=== PATIENT | female | born 1940 | race Caucasian/White ===

== ENCOUNTER 2016-12-07 10:34 | Emergency (ER) | payer MEDICARE ==
[~2016-12-07 10:34] MED LIST: AMLODIPINE5 MG PO; B12100 MC1 PO; CHEWABLE ASPIRI81 MG PO; EXFORGE 10 MG-11 TAB PO; HYDROCODONE BIT1 T11 PO; LISINOPRIL10 MG PO; NEURONTIN300 MG PO
[2016-12-07] MEDS ORDERED: LOSARTAN POTASS25 M1 PO (10:48)
[2016-12-07 11:41] VITALS: BP 161/81
[2016-12-07 11:48] LABS: INTERNATIONAL NORM RATIO 1.1 (2.0-3.5); PROTHROMBIN TIME 12.2 SECONDS (9.0-12.4)
== END 2016-12-07 12:24 | disposition home or self-care (01) ==
LOC: ED 10:34
PROVIDERS: Emergency Medicine
DX: I10 Essential (primary) hypertension (principal); Z79.899 Other long term (current) drug therapy

== ENCOUNTER → 2017-03-27 | Outpatient (CLI) | payer MEDICARE ==
[~2017-03-27] MED LIST changes: +LOSARTAN POTASS25 M1 PO
== END ==
LOC: RAD 13:00
DX: M81.0 Age-related osteoporosis without current pathological fracture (principal)

== ENCOUNTER → 2017-06-12 | Outpatient (CLI) | payer MEDICARE | END | disposition home or self-care (01) | LOC: US 09:26 | DX: I73.9 Peripheral vascular disease, unspecified (principal); I10 Essential (primary) hypertension ==

== ENCOUNTER → 2017-09-11 | Outpatient (CLI) | payer MEDICARE | END | disposition home or self-care (01) | LOC: ORTHO 02:24 | DX: M25.562 Pain in left knee (principal); M17.12 Unilateral primary osteoarthritis, left knee ==

== ENCOUNTER → 2017-10-23 | Outpatient (CLI) | payer MEDICARE | END | disposition home or self-care (01) | LOC: ORTHO 03:50 | DX: M17.11 Unilateral primary osteoarthritis, right knee (principal) ==

== ENCOUNTER 2017-12-24 23:44 | Emergency (ER) | payer MEDICARE ==
[~2017-12-24] VITALS: Ht 157.4 cm; Wt 68.5 kg
[2017-12-24 23:51] VITALS: BP 182/96
[2017-12-25] MEDS ORDERED: KENALOG 0.1%80 GM T ×2 (00:21→00:36)
[2017-12-25] MEDS ORDERED: ATARAX,VISTARIL50 MG PO ×2 (00:21→00:36)
== END 2017-12-25 00:44 | disposition home or self-care (01) ==
LOC: ED 23:44
DX: L30.9 Dermatitis, unspecified (principal); I10 Essential (primary) hypertension; Z79.899 Other long term (current) drug therapy; Z88.0 Allergy status to penicillin; Z79.82 Long term (current) use of aspirin

== ENCOUNTER 2018-02-24 09:35 | Inpatient (IN) | payer MEDICARE ==
[~2018-02-24] VITALS: Ht 160 cm; Wt 73.1 kg
--- NOTE | ~2018-02-24 | CON ---
[place], [place] REPORT OF CONSULTATION NAME: [facility]LIN [facility] [id number] UNIT #: [id number] ROOM: 502 DOCTOR: TERESA BUNN MD BIRTHDATE: [birth year] DOS: 02/24/2018 REASON FOR CONSULTATION: Chest pain. HISTORY OF PRESENT ILLNESS: The patient is a 77-year-old woman, who I follow in our [facility] Cardiology office for paroxysmal atrial fibrillation. She states that she was previously followed by Dr. Garcia at the [facility]. She did have an episode of chest pain several years ago. Dr. Garcia did a catheterization, which reportedly showed mild disease and she has been managed medically since then. She developed atrial fibrillation around 2013 and has had several episodes that she can recall since then. She is on metoprolol and amlodipine for heart rate and blood pressure control and is on warfarin for stroke prophylaxis. She was in her normal state of health until this morning when she awakened and felt an aching sensation in her left shoulder. She had not previously injured it and she was able to move the shoulder without difficulty. Subsequently, the pains radiated into the center of her chest and she felt a knot in her chest. This made her uncomfortable and slightly breathless. She did have mild indigestion. During this episode, she also had some fluttering in her chest and had the feeling that she had to go to the bathroom to pass her urine. She became concerned and at the advice of a friend did come to the Emergency Room. I was called and I agreed that she should be observed overnight for a stress test in the morning. The patient states that her chest discomfort has subsequently resolved spontaneously and she no longer has any pain in her shoulder or chest. She does note that she ate [place]ic food last night that did not agree with her, but she was able to sleep through the night without any further discomfort and her pains did not start until this morning. PAST MEDICAL HISTORY: Includes: 1. Cardiac catheterization by Dr. Garcia at the [facility] in [place] several years ago reportedly showed minor coronary artery disease that has been treated medically. Those records are not currently available to me. 2. Essential hypertension. 3. Atrial fibrillation documented around 2013. 4. No previous history of diabetes, heart attack, or stroke. 5. History of peripheral neuropathy with Charcot joint in her right foot. 6. 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 7. Hospitalization 02/24/2018 for chest discomfort. Thus far, myocardial infarction has been ruled out. MEDICATIONS: Prior to admission, warfarin 6 mg for 3 days and then 7 mg on the fourth day, amlodipine 5 mg daily, ascorbic acid 500 mg daily, FiberCon 3 tablets daily, cholecalciferol 2000 units every other day, gabapentin 300 mg daily, magnesium oxide 400 mg every other day, metoprolol succinate 25 mg daily, multivitamin with folic acid once daily, Ambien 5 mg at bedtime p.r.n. insomnia. ALLERGIES: The patient lists ALLERGIES TO PENICILLINS. [place], [place] REPORT OF CONSULTATION NAME: BARRY TOMLIN UNIT #: [id number] ROOM: [facility] DOCTOR: TERESA BUNN MD BIRTHDATE: [birth year] FAMILY HISTORY: Negative for early coronary artery disease. REVIEW OF SYSTEMS: The patient denies diplopia or loss of vision. She denies focal weakness, lightheadedness, or syncope. She denies fevers, chills, sweats, or recent weight change. She denies orthopnea or PND. She denies cough, hemoptysis, or hematemesis. She denies nausea or vomiting. She denies any change in bowel or bladder habits and denies blood in her stools or urine. She denies any peripheral edema. Denies any skin rashes. She does have pains in her back with spinal stenosis, knees with osteoarthritis and feet with right ankle Charcot joint. The remainder of the review of systems is negative except as noted above. SOCIAL HISTORY: The patient does not smoke. She did in the distant past, but quit over 20 years ago. She did not consume significant amounts of alcohol. PHYSICAL EXAMINATION: GENERAL: The patient is a well-nourished white female, who looks younger than her stated age. She is awake, alert, and oriented. VITAL SIGNS: Pulse is 68 and regular, blood pressure is 154/76. She is afebrile. She weighs 73.1 kg and has a body mass index 28.6. HEENT: Normocephalic and atraumatic. Extraocular muscles are intact. Sclerae are clear. Pupils equal, round, and react to light. The oral mucosa is moist. Tongue is midline. NECK: Supple. She has no jugular distention. Carotids are full and I heard no bruits. She had no neck or supraclavicular masses and no thyromegaly. LUNGS: Respirations are unlabored. Her chest is clear to auscultation and percussion. She has no presacral edema or chest wall tenderness. HEART: Has a regular rhythm. She has a fourth heart sound, but no third heart sound or murmur. The PMI is not displaced. She has no precordial heave, lift, or thrill. ABDOMEN: Soft and normally active without masses, organomegaly, or bruits. EXTREMITIES: Showed no edema. She does have swelling in her knees and her right ankle. Pedal pulses are diminished in her feet bilaterally. LABORATORY DATA: I reviewed her electrocardiogram. She is currently in sinus rhythm and does have mild nonspecific ST changes, but no acute EKG changes are seen. Hemoglobin is 13.4, hematocrit 41.3. There are 4900 white cells and 189,000 platelets. INR is therapeutic at 2.4. Sodium is 144, potassium 3.7, chloride 109, CO2 of 30, BUN 11, creatinine 0.58. Serial troponins have been negative. IMPRESSION: 1. Atypical chest pain, which has subsequently resolved. The patient shows no signs of an acute myocardial infarction. 2. History of catheterization in the distant past. It showed minor coronary artery disease managed medically. 3. Paroxysmal atrial fibrillation. The patient is currently in sinus rhythm. 4. Essential hypertension. 5. History of degenerative joint disease and peripheral neuropathy with a right ankle Charcot joint despite the fact that she does not have diabetes. [place], [place] REPORT OF CONSULTATION NAME: BARRY TOMLIN UNIT #: [id number] ROOM: 502 DOCTOR: TERESA BUNN MD BIRTHDATE: [birth year] PLAN: The patient has ruled out for myocardial infarction. It is not clear at this time if this represents indigestion or angina. We will evaluate her further with a pharmacologic myocardial perfusion stress test. Further recommendations will depend upon the results of the stress test. In the interim, she will continue her current medications. I thank Dr. Browne for asking our advice regarding the management of this patient. TERESA BUNN MD CM:CONSTR:REPORT OF CONSULTATION 1927 02/25/18 0710 interface
--- NOTE | ~2018-02-24 | WRIGHTHP ---
[place], [place] PATIENT HISTORY AND PHYSICAL EXAM [id number] UNIT #: [id number] ROOM: 502 DOCTOR: HEIDY QUINTANA MD BIRTHDATE: [birth year] DOS: HISTORY OF PRESENT ILLNESS: This patient is 77 years old. The patient states that she was feeling good. She did not have any complaints when she woke up. She was on her way to work and noticed that she was having some retrosternal chest pain and radiation to the left arm, so she decided to come into the Emergency Room. She denies having any pain after she got admitted. She denies having any nausea, any emesis, any palpitations or shortness of breath. PAST MEDICAL HISTORY: Significant for: 1. History of chest pain with hospitalization in 2013. 2. Benign hypertension. 3. Also significant for chronic atrial fibrillation. MEDICATIONS: That she is taking are vitamin C, amlodipine 5, vitamin D, gabapentin 300, metoprolol 25, warfarin 6 mg 3 days and 7 mg 1 day and zolpidem 5 at bedtime. SOCIAL HISTORY: The patient is a nonsmoker and does not use any alcohol. She lives at home. PHYSICAL EXAMINATION: GENERAL: The patient is awake, alert and oriented. VITAL SIGNS: Graphic trend shows a blood pressure of 110/59, pulse of 48, respirations 20 and temperature 97.5. RESPIRATORY: Lungs are clear. CARDIOVASCULAR: Heart is regular. GASTROINTESTINAL: Abdomen is obese and soft. EXTREMITIES: Without any edema. LABORATORY EVALUATION: Protime is therapeutic at 2.4, white blood cell count is 4.9 and hemoglobin and hematocrit were normal. Comprehensive is within normal limits. ASSESSMENT AND PLAN: 1. This is a patient, who presents with precordial chest pain, ruled out for myocardial infarction with 3 sets of troponins. Echocardiogram is pending. Dr. Nash was consulted, and the patient will undergo stress test today. She can be discharged to home once the stress test is done and is negative. 2. Chronic atrial fibrillation with long-term use of anticoagulants and therapeutic protime. 3. Benign hypertension, controlled. [place], [place] PATIENT HISTORY AND PHYSICAL EXAM [facility]: [facility] [id number] UNIT #: [id number] ROOM: 502 DOCTOR: HEIDY QUINTANA MDTE: [birth year] HEIDY QUINTANA MD CM:HISPHYS:PATIENT HISTORY AND PHYSICAL EXAMINATION [id number] HEIDY QUINTANA MD 02/25/18 0807 interface
--- NOTE | ~2018-02-24 | PR ---
[place], [place] PROGRESS NOTE NAME: BARRY TOMLIN UNIT #: [id number] ROOM: 502 DOCTOR: TERESA BUNN MD BIRTHDATE: [birth year] DOS: 02/25/2018 CARDIOLOGY PROGRESS NOTE SUBJECTIVE: The patient was seen at her bedside today 02/25/2018 for followup of her paroxysmal atrial fibrillation and atherosclerotic heart disease. She has a history of a catheterization in the distant past which showed mild disease, which has been managed medically. She does have paroxysmal atrial fibrillation, which is occasionally symptomatic, but not life limiting. She presented to the hospital yesterday after experiencing an hour or two of left shoulder discomfort and a knot sensation in her left anterior chest, which subsequently resolved spontaneously. She has had no acute EKG changes or elevation in cardiac troponin. Overnight, she has done well. OBJECTIVE: VITAL SIGNS: Pulse is 60 and regular, blood pressure is 127/72. She is afebrile. NECK: Supple. She has no jugular distention. Carotids are full. She has no bruits. She has no neck or supraclavicular masses. LUNGS: Respirations are unlabored. Her chest is clear. HEART: Has a regular rhythm with an S4 gallop. ABDOMEN: Soft and normally active. EXTREMITIES: Showed no edema. IMPRESSION: 1. Atypical chest pain, resolving spontaneously. The patient shows no signs of an acute myocardial infarction; however, this may represent unstable angina. 2. History of catheterization in the distant past, reportedly showing minor coronary artery disease, managed medically. 3. Paroxysmal atrial fibrillation. The patient currently is in sinus rhythm. 4. Essential hypertension. 5. History of degenerative joint disease and peripheral neuropathy with right ankle Charcot joint despite the fact that she does not have diabetes. PLAN: We will proceed with a pharmacologic stress test today to determine whether she has significant coronary ischemia as a cause for her symptoms. Further recommendations will depend upon the results of the stress test. I thank Dr. Browne for asking our advice regarding the patient's care. [place], [place] PROGRESS NOTE NAME: BARRY TOMLIN UNIT #: [id number] ROOM: 502 DOCTOR: TERESA BUNN MD BIRTHDATE: [birth year] TERESA BUNN MD CM:PNNERI 0 22 TERESA BUNN MD 02/25/182120 interface
[~2018-02-24 09:35] MED LIST changes: +ATARAX,VISTARIL50 MG PO; +KENALOG 0.1%80 GM T
[2018-02-24 09:40] VITALS: BP 175/88
[2018-02-24] MEDS ORDERED: WARFARIN2 MG PO (09:49)
[2018-02-24] MEDS ORDERED: METOPROLOL SUCC25 M2 PO (09:50)
[2018-02-24] MEDS ORDERED: AMLODIPINE BESYL5 MG PO (09:50)
[2018-02-24] MEDS ORDERED: VITAMIN C60 MG PO (09:51)
[2018-02-24] MEDS ORDERED: MULTI FOR HER1 EAC2 PO (09:51)
[2018-02-24] MEDS ORDERED: VITAMIN D400 UNIT/1 PO (09:52)
[2018-02-24 10:05] LABS: BASO % 0.8 % (0.0-1.0); EOS # 0.1 10*3/uL (0.0-0.4); EOS % 1.4 % (1.0-4.0); HEMATOCRIT 41.3 % (37.0-47.0); HEMOGLOBIN 13.4 g/dl (12.0-16.0); LYMPH # 1.4 10*3/uL (1.3-4.4); LYMPH % 29.3 % (27.0-41.0); MEAN CELL VOLUME 90.2 fl (81.0-99.0); MEAN CORPUSCULAR HGB 29.3 pg (27.0-31.0); MEAN CORPUSCULAR HGB CONC 32.4 g/dl (33.0-37.0); MEAN PLATELET VOLUME 9.1 fl (9.6-12.3); MONO # 0.5 10*3/uL (0.1-1.0); MONO % 9.8 % (3.0-9.0); NEUT # 2.9 10*3/uL (2.3-7.9); NEUT % 58.5 % (47.0-73.0); PLATELET COUNT AUTOMATED 189 10*3/uL (130-400); RED BLOOD COUNT 4.58 10*6/uL (4.10-5.10); RED CELL DISTRI WIDTH 13.2 % (0-14.5); WHITE BLOOD COUNT 4.9 10*3/uL (4.8-10.8)
[2018-02-24 10:13] LABS: ACT PARTIAL THROMBO TIME 35.7 SECONDS (20.8-31.5); INTERNATIONAL NORM RATIO 2.4 (2.0-3.5)
[2018-02-24 10:21] LABS: ALBUMIN 3.5 gm/dl (3.1-4.5); ALKALINE PHOSPHATASE 68 U/L (45-117); BUN 11 mg/dl (7-24); CHLORIDE 109 mmol/L (98-107); CREATININE 0.58 mg/dL (0.55-1.02); POTASSIUM 3.7 mmol/L (3.5-5.1); SGOT/AST 16 IU/L (3-35); SGPT/ALT 29 U/L (12-78); SODIUM 144 mmol/L (136-145); TOTAL PROTEIN 6.7 gm/dL (6.4-8.2)
[2018-02-24 10:22] LABS: TROPONIN I < 0.015 ng/ml (<0.045)
[2018-02-24 10:58] VITALS: BP 163/75
[2018-02-24 11:02] LABS: BILIRUBIN NEGATIVE (NEGATIVE); BLOOD NEGATIVE (NEGATIVE); CLARITY CLEAR (CLEAR); COLOR YELLOW (YELLOW); GLUCOSE NEGATIVE (NEGATIVE); KETONE NEGATIVE (NEGATIVE); LEUKO ESTERASE NEGATIVE (NEGATIVE); NITRITE NEGATIVE (NEGATIVE); PH 6.5 (5.0-9.0); UROBILINOGEN 0.2 E.U./dl (0.2-1.0)
[2018-02-24 11:09] LABS: WBC 0-2 wbc/hpf (0-5); YEAST TRACE
[2018-02-24 12:08] VITALS: BP 170/88
[2018-02-24] MEDS ORDERED: AMBIEN5 MG PO (13:11)
[2018-02-24] MEDS ORDERED: MAGNESIUM400 M1 PO (13:12)
[2018-02-24] MEDS ORDERED: FIBERCON625 MG PO (13:12)
[2018-02-24 16:00] VITALS: BP 154/76
[2018-02-24 20:00] VITALS: BP 141/88
[2018-02-25] VITALS: BP 110/59
[2018-02-25 06:51] LABS: CHOLESTEROL 206 mg/dL (<200); HDL CHOLESTEROL 67 mg/dl (40-60); LDL CHOLESTEROL 124 mg/dL (9-159); TRIGLYCERIDES 74 mg/dl (<150); VLDL CHOLESTEROL 15 mg/dL (6-40)
[2018-02-25 08:00] VITALS: BP 127/72
[2018-02-25 12:00] VITALS: BP 126/67
== END 2018-02-25 14:40 | disposition home or self-care (01) | DRG 303 ==
LOC: ED 09:35 → 5E 10:55 → EDHOLD 10:55 → 5E 11:22
PROVIDERS: Internal Medicine; Nurse Practitioner Family
PROC: 4A02XM4 Measurement of Cardiac Total Activity, External Approach (ICD-10-PCS; principal; 2018-02-25)
PROC: 3E073KZ Introduction of Other Diagnostic Substance into Coronary Artery, Percutaneous Approach (ICD-10-PCS; principal; 2018-02-25)
DX: I25.110 Atherosclerotic heart disease of native coronary artery with unstable angina pectoris (principal); A52.16 Charcot's arthropathy (tabetic); I48.0 Paroxysmal atrial fibrillation; G62.9 Polyneuropathy, unspecified; I48.2 Chronic atrial fibrillation; I10 Essential (primary) hypertension; M17.0 Bilateral primary osteoarthritis of knee; Z79.82 Long term (current) use of aspirin; Z79.01 Long term (current) use of anticoagulants; Z88.0 Allergy status to penicillin; Z82.49 Family history of ischemic heart disease and other diseases of the circulatory system; Z79.899 Other long term (current) drug therapy

== ENCOUNTER 2018-05-11 04:38 | Emergency (ER) | payer MEDICARE ==
[~2018-05-11] VITALS: Ht 160 cm; Wt 69.4 kg
[~2018-05-11 04:38] MED LIST changes: +AMBIEN5 MG PO; +AMLODIPINE BESYL5 MG PO; +FIBERCON625 MG PO; +MAGNESIUM400 M1 PO; +METOPROLOL SUCC25 M2 PO; +MULTI FOR HER1 EAC2 PO; +VITAMIN C60 MG PO; +VITAMIN D400 UNIT/1 PO; +WARFARIN2 MG PO
[2018-05-11 04:39] VITALS: BP 155/89
[2018-08-01] MEDS ORDERED: ZOFRAN ODT4 MG SL ×2 (00:30→00:38)
== END 2018-05-11 06:12 | disposition home or self-care (01) ==
LOC: ED 04:38
DX: R07.81 Pleurodynia (principal); R06.00 Dyspnea, unspecified; I10 Essential (primary) hypertension; Z88.0 Allergy status to penicillin; Z88.8 Allergy status to other drugs, medicaments and biological substances; Z79.01 Long term (current) use of anticoagulants; Z79.899 Other long term (current) drug therapy

== ENCOUNTER → 2018-05-18 | Outpatient (CLI) | payer MEDICARE ==
[~2018-05-18] MED LIST changes: +ZOFRAN ODT4 MG SL
== END | disposition home or self-care (01) ==
LOC: CT 12:53
DX: I70.0 Atherosclerosis of aorta (principal); I25.10 Atherosclerotic heart disease of native coronary artery without angina pectoris; M79.621 Pain in right upper arm

== ENCOUNTER → 2018-06-30 | Outpatient (CLI) | payer MEDICARE ==
[2018-06-30 13:47] LABS: BASO # 0.1 10*3/uL (0.0-0.1); BASO % 0.9 % (0.0-1.0); EOS # 0.1 10*3/uL (0.0-0.4); EOS % 2.1 % (1.0-4.0); HEMATOCRIT 42.2 % (37.0-47.0); HEMOGLOBIN 13.8 g/dl (12.0-16.0); LYMPH # 2.2 10*3/uL (1.3-4.4); LYMPH % 39.7 % (27.0-41.0); MEAN CELL VOLUME 90.9 fl (81.0-99.0); MEAN CORPUSCULAR HGB 29.7 pg (27.0-31.0); MEAN CORPUSCULAR HGB CONC 32.7 g/dl (33.0-37.0); MEAN PLATELET VOLUME 9.1 fl (9.6-12.3); MONO # 0.6 10*3/uL (0.1-1.0); MONO % 10.1 % (3.0-9.0); NEUT # 2.6 10*3/uL (2.3-7.9); NEUT % 46.8 % (47.0-73.0); PLATELET COUNT AUTOMATED 194 10*3/uL (130-400); RED BLOOD COUNT 4.64 10*6/uL (4.10-5.10); RED CELL DISTRI WIDTH 13.8 % (0-14.5); WHITE BLOOD COUNT 5.6 10*3/uL (4.8-10.8)
== END | disposition home or self-care (01) ==
LOC: LAB 13:20
PROVIDERS: Orthopaedic Surgery
DX: M25.461 Effusion, right knee (principal)

== ENCOUNTER → 2018-07-28 | Outpatient (CLI) | payer MEDICARE | END | disposition home or self-care (01) | LOC: US 11:40 | DX: M71.22 Synovial cyst of popliteal space [Baker], left knee (principal); M79.81 Nontraumatic hematoma of soft tissue ==

== ENCOUNTER → 2018-08-06 | Outpatient (CLI) | payer MEDICARE | END | disposition home or self-care (01) | LOC: MRI 13:35 | DX: S06.5X0A Traumatic subdural hemorrhage without loss of consciousness, initial encounter (principal); X58.XXXA Exposure to other specified factors, initial encounter; Y93.89 Activity, other specified; Y92.89 Other specified places as the place of occurrence of the external cause; Y99.8 Other external cause status ==

== ENCOUNTER 2018-08-11 07:46 | Emergency (ER) | payer MEDICARE ==
[~2018-08-11] VITALS: Ht 160 cm; Wt 68.5 kg
[2018-08-11 07:47] VITALS: BP 141/92
[2018-08-11 09:31] LABS: BASO % 0.6 % (0.0-1.0); EOS # 0.1 10*3/uL (0.0-0.4); HEMATOCRIT 38.7 % (37.0-47.0); HEMOGLOBIN 12.5 g/dl (12.0-16.0); LYMPH # 1.3 10*3/uL (1.3-4.4); LYMPH % 27.7 % (27.0-41.0); MEAN CELL VOLUME 91.5 fl (81.0-99.0); MEAN CORPUSCULAR HGB 29.6 pg (27.0-31.0); MEAN CORPUSCULAR HGB CONC 32.3 g/dl (33.0-37.0); MEAN PLATELET VOLUME 8.5 fl (9.6-12.3); MONO # 0.5 10*3/uL (0.1-1.0); MONO % 10.6 % (3.0-9.0); NEUT # 2.9 10*3/uL (2.3-7.9); NEUT % 59.7 % (47.0-73.0); PLATELET COUNT AUTOMATED 228 10*3/uL (130-400); RED BLOOD COUNT 4.23 10*6/uL (4.10-5.10); RED CELL DISTRI WIDTH 13.7 % (0-14.5); WHITE BLOOD COUNT 4.8 10*3/uL (4.8-10.8)
[2018-08-11 09:39] LABS: ACT PARTIAL THROMBO TIME 25.5 SECONDS (20.8-31.5)
[2018-08-11 09:49] LABS: ALBUMIN 3.4 gm/dl (3.1-4.5); ALKALINE PHOSPHATASE 90 U/L (45-117); BUN 12 mg/dl (7-24); CHLORIDE 105 mmol/L (98-107); CREATININE 0.49 mg/dL (0.55-1.02); POTASSIUM 4.3 mmol/L (3.5-5.1); SGOT/AST 23 IU/L (3-35); SGPT/ALT 32 U/L (12-78); SODIUM 138 mmol/L (136-145); TOTAL PROTEIN 7.1 gm/dL (6.4-8.2)
[2018-08-11 10:19] LABS: BILIRUBIN NEGATIVE (NEGATIVE); BLOOD NEGATIVE (NEGATIVE); CLARITY SL CLOUDY (CLEAR); COLOR YELLOW (YELLOW); GLUCOSE NEGATIVE (NEGATIVE); KETONE NEGATIVE (NEGATIVE); LEUKO ESTERASE NEGATIVE (NEGATIVE); NITRITE NEGATIVE (NEGATIVE); PH 6.5 (5.0-9.0); SPECIFIC GRAVITY <= 1.005 (1.005-1.030); UROBILINOGEN 0.2 E.U./dl (0.2-1.0)
[2018-08-11 10:28] LABS: RBC 0-2 rbc/hpf (0-2)
[2018-08-11 10:29] LABS: BACTERIA TRACE
== END 2018-08-11 12:22 | disposition home or self-care (01) ==
LOC: ED 07:46
PROVIDERS: Emergency Medicine
DX: S00.03XA Contusion of scalp, initial encounter (principal); S10.93XA Contusion of unspecified part of neck, initial encounter; R51 Headache; R09.81 Nasal congestion; M54.5 Low back pain; R04.0 Epistaxis; M25.551 Pain in right hip; M79.604 Pain in right leg; I48.0 Paroxysmal atrial fibrillation; Z88.0 Allergy status to penicillin; Z88.8 Allergy status to other drugs, medicaments and biological substances; Z79.899 Other long term (current) drug therapy; Z79.01 Long term (current) use of anticoagulants; Z79.02 Long term (current) use of antithrombotics/antiplatelets; W19.XXXA Unspecified fall, initial encounter; Y93.89 Activity, other specified; Y92.89 Other specified places as the place of occurrence of the external cause; Y99.8 Other external cause status

== ENCOUNTER → 2018-09-01 | Outpatient (CLI) | payer MEDICARE ==
[~2018-09-01] MED LIST changes: +COUMADIN5 M2 PO; +Lidoderm 5% Patch T; +PERCOCET 5-3251 EACH PO
== END | disposition home or self-care (01) ==
DX: S32.19XA Other fracture of sacrum, initial encounter for closed fracture (principal); M43.17 Spondylolisthesis, lumbosacral region; M48.07 Spinal stenosis, lumbosacral region; M12.88 Other specific arthropathies, not elsewhere classified, other specified site; M51.26 Other intervertebral disc displacement, lumbar region; X58.XXXA Exposure to other specified factors, initial encounter; Y93.89 Activity, other specified; Y99.8 Other external cause status; Y92.89 Other specified places as the place of occurrence of the external cause

== ENCOUNTER 2018-09-05 11:44 | Inpatient (IN) | payer MEDICARE ==
[~2018-09-05] VITALS: Ht 160 cm; Wt 71.9 kg
--- NOTE | ~2018-09-05 | PR ---
[place], [place] PROGRESS NOTE [id number] UNIT #: [id number] ROOM: 408 DOCTOR: HEIDY QUINTANA MD BIRTHDATE: [birth year] DOS: 09/09/2018 SUBJECTIVE: The patient continues to have pain, but is ambulating fairly well with physical therapy. OBJECTIVE: VITAL SIGNS: Graphic trend shows a pressure of 93/60, pulse of 77, respirations 18, temperature 98.7. LUNGS: Clear. HEART: Irregular, heart rate controlled. ABDOMEN: Obese, soft. EXTREMITIES: Without any edema. Echocardiogram showed normal LV function. No new pathology was noted. Mild concentric LVH was seen. MRI of the pelvis showed 2 fractures of the sacrum as well as a fracture of the superior and inferior pubic ramus on the left with significant marrow edema. Chest x-ray was unremarkable. ASSESSMENT AND PLAN: 1. The patient with status post fall and difficulty ambulating with multiple fractures, both of the sacrum as well as the pubic ramus. The patient is going to a rehabilitation this morning. Arrangements have been made. 2. Chronic atrial fibrillation, protime was subtherapeutic. Extra doses of Coumadin was given. We will recheck labs when the patient gets to a rehab facility. 3. Benign hypertension, controlled. Pressures slightly on low side. HEIDY QUINTANA MD CM:PNTRANS [id number] [id number] HEIDY QUINTANA MD 09/24/18 0742 interface
--- NOTE | ~2018-09-05 | PR ---
[place], [place] PROGRESS NOTE [id number] UNIT #: [id number] ROOM: 408 DOCTOR: HEIDY QUINTANA MD BIRTHDATE: [birth year] DOS: SUBJECTIVE: The patient is doing about the same. She continues to complain of pain, but refuses to take IV pain medications. She is awaiting an MRI of the back this morning. PHYSICAL EXAMINATION: GENERAL: She is awake and alert and oriented. VITAL SIGNS: Blood pressure is 152/80, pulse of 66, respirations 18, and temperature 97.7. LUNGS: Clear. HEART: Irregular. ABDOMEN: Obese, soft. EXTREMITIES: Without any edema. ASSESSMENT AND PLAN: 1. Fall with inability to ambulate from a sacral fracture. Awaiting sacral MRI this morning. 2. Spinal stenosis with neurogenic claudication with chronic pain, already on gabapentin, dosage was increased. 3. Chronic atrial fibrillation, on Coumadin. Protime will be rechecked in the morning. We are awaiting her to go to a rehab facility. HEIDY QUINTANA MD CM:PNTRANS [id number] [id number] HEIDY QUINTANA MD 09/06/18 1115 interface
--- NOTE | ~2018-09-05 | WRIGHTHP ---
[place], [place] PATIENT HISTORY AND PHYSICAL EXAM NAME: BARRY TOMLIN [facility] #: [id number] UNIT #: [id number] ROOM: 408 DOCTOR: HEIDY QUINTANA MD BIRTHDATE: [birth year] DOS: HISTORY OF PRESENT ILLNESS: The patient is an unfortunate 77-year-old. She had a fall at her brother's house the day after Thanksgiving, developed extensive bruising and hematoma of the knee and thighs and back. She was seen in the office multiple times, was also seen by Dr. Hernandez for her left knee pain. At that time, she did not have any head injury and she was advised to hold the Coumadin for 2-3 days and restart the medication. On 07/31/2018, she was at [facility], when she bumped into another person, who was a visitor at the [facility] and she got knocked backwards and she hit her head. At this time, she came to the Emergency Room, she was found to have a large hematoma. Continued workup revealed that she also had a subdural hematoma. She was advised to see Neurosurgery, which she did. After again holding the Coumadin for a few days, hematoma has resolved and the subdural hematoma has not caused any problems and the neurosurgeon advised resumption of her Coumadin, but since then, she is complaining of severe back pain and advised admission, but she refused. She underwent an MRI of the spine, a lumbar spine recently. An MRI showed that she did have sacral fracture with significant edema and lumbar spinal stenosis. The patient has had increased pain and is unable to walk. The patient denies having any chest pains or palpitations. She is unable to continue living at home alone. She has been unable to walk, doing much activities at home. She does not have any fever or chills, does not have any urinary symptoms or bowel symptoms. PAST MEDICAL HISTORY: Significant for: 1. Chronic atrial fibrillation. 2. Benign hypertension. 3. History of a negative stress test in January 2018. 4. Spinal stenosis, lumbar, with neurogenic claudication. MEDICATIONS: She is currently on are: Vitamin C 500 mg daily, amlodipine 5 daily, vitamin D 2000 units daily, gabapentin 300 at bedtime, mag oxide 400 daily, metoprolol 25 daily, Percocet 5 t.i.d., warfarin 5 mg daily and zolpidem 5 at bedtime. SOCIAL HISTORY: Nonsmoker. Does not use any alcohol. She lives at home. PHYSICAL EXAMINATION: GENERAL: She is not and does not have any children. VITAL SIGNS: Graphic trend shows pressure of 139/66, pulse of 63, respirations 18, temperature 98.1. LUNGS: Diminished breath sounds. No wheezes, rales or rhonchi heard. HEART: Irregular. ABDOMEN: Obese, soft, nontender. EXTREMITIES: Without any edema. Significant discomfort in the lumbosacral area and the patient seems to have a hard time getting up out of bed. ASSESSMENT AND PLAN: 1. Fall with acute back pain with a sacral fracture. Dedicated MRI of the sacrum will be ordered. Consult Dr. Hernandez. The patient is placed on pain [place], [place] PATIENT HISTORY AND PHYSICAL EXAM NAME: BARRY TOMLIN UNIT #: [id number] ROOM: [facility] DOCTOR: HEIDY QUINTANA MD BIRTHDATE: [birth year] medications. 2. Adult failure to thrive with inability to ambulate. The patient may require a short-term placement in rehabilitation. PT/OT as well as Social Service will be consulted. 3. Chronic atrial fibrillation, on long-term use of anticoagulants. Protime slightly on the low side today. We will continue her Coumadin. 4. Spinal stenosis with neurogenic claudication. Increase the dose of the Neurontin. HEIDY QUINTANA MD CM:HISPHYS:PATIENT HISTORY AND PHYSICAL EXAMINATION 1502 [id number] HEIDY QUINTANA MD 09/05/18 7718 interface
--- NOTE | ~2018-09-05 | DS ---
[place], [place] DISCHARGE SUMMARY [facility]: [id number] UNIT #: [id number] ROOM: 408 DOCTOR: HEIDY QUINTANA MD BIRTHDATE: [birth year] DOS: HOSPITAL COURSE: This patient is 77 years old, very well known to us. She was walking through a hallway at [facility] [place] when she bumped into another person who was also a visitor, got knocked backwards and she hit her head and the hub. She developed acute back pain. This is complicated by development of subdural hematoma. MRI recently because of the continued back pain showed sacral fractures. The patient is admitted to the hospital with inability to ambulate. The patient after admission had an MRI of the pelvis, which showed two sacral fractures as well as a fracture of the inferior and superior pubic ramus on the left. The pain control is achieved with Percocet. Dilaudid was given, but made her nauseous, so we put that as an allergy. Also was given lidocaine local application. She is slowly improving with therapy. PT has been ambulating her, but we do not have any local modalities like heating pad or hot packs in the hospital. The patient is stable. Social service has been consulted and they have a bed for her at [facility]. Her echocardiogram is normal. Chest x-ray is normal. Protime is still subtherapeutic, but additional doses of Coumadin were given here in the hospital. [facility] Please do a protime, CBC basic tomorrow morning and admit all the results. DISCHARGE MEDICATIONS: Gabapentin 300 mg b.i.d., metoprolol 25 mg daily, amlodipine 5 daily, multivitamin 1 tablet daily, ascorbic acid 500 mg daily, vitamin D 2000 units daily, Mag Oxide 400 daily, warfarin 5 mg daily, zolpidem 5 at bedtime p.r.n., FiberCon 625 three tablets daily, oxycodone or Percocet 5/325 t.i.d. p.r.n., lidocaine patch for local application. DIET: Regular. HEIDY QUINTANA MD CM:DISCHARG 0830 [id number] HEIDY QUINTANA MD 09/09/18 1051 interface
--- NOTE | ~2018-09-05 | PR ---
[place], [place] PROGRESS NOTE [id number] UNIT #: [id number] ROOM: 408 DOCTOR: HEIDY QUINTANA MD BIRTHDATE: [birth year] DOS: 09/07/2018 SUBJECTIVE: Appreciate Dr. Hernandez's input. The patient continues to have some discomfort, but is relieved with the Percocet she is on. Has not taken any of the IV pain medications. OBJECTIVE: VITAL SIGNS: Graphic trend shows pressure 127/72, pulse of 63, respirations 20, temperature 98.7. LUNGS: Clear. HEART: Irregular, controlled heart rate. ABDOMEN: Obese. EXTREMITIES: Without any edema. Still some tenderness in the lower lumbar area. ASSESSMENT AND PLAN: 1. Sacral fracture with inability to ambulate and adult failure to thrive. The patient is going to be discharged tomorrow for rehabilitation. 2. Chronic atrial fibrillation. Protime still subtherapeutic. Extra dose of Coumadin to be given today. 3. Chronic spinal stenosis lumbar with neurogenic claudication. Already on gabapentin, the dose was increased. Consider bone density as an outpatient. HEIDY QUINTANA MD CM:PNTRANS 7 9 HEIDY QUINTANA MD 09/07/18 09 interface
--- NOTE | ~2018-09-05 | PR ---
[place], [place] PROGRESS NOTE [id number] UNIT #: [id number] ROOM: 408 DOCTOR: HEIDY QUINTANA MD BIRTHDATE: [birth year] DOS: 09/08/2018 SUBJECTIVE: The patient developed hypoxemia during the night and had to be placed on oxygen. As per nursing staff, the patient was in deep sleep and the saturation seems to be low, but during this morning the patient's saturations improved to 90% and she was taken off the oxygen. She does not complain of any shortness of breath. She denies having any chest pains or palpitations, does not have any fever or chills, has a lot of pain in her back and she finally has taken the IV pain medications. OBJECTIVE: VITAL SIGNS: Graphic trend shows a blood pressure of 113/60, pulse of 60, respirations 18, temperature 98.3. LUNGS: Diminished breath sounds. HEART: Irregular. ABDOMEN: Obese. EXTREMITIES: Without any edema. ASSESSMENT AND PLAN: 1. Sacral fracture. An MRI of the pelvis was scheduled for a dedicated imaging, we do not have the results yet. 2. Adult failure to thrive, awaiting placement. She did get a bed at one of the nursing homes, but she is declining and would like to go to [place] and we are waiting for a bed to open up there. 3. Hypoxemia during the night, possibly from shallow respiration. Incentive spirometry will be ordered. The patient is ordered a chest x-ray and an echocardiogram, check LV function. 4. Benign hypertension, controlled. HEIDY QUINTANA MD CM:PNTRANS [id number] HEIDY QUINTANA MD 09/09/18 0509 interface
[~2018-09-05 11:44] MED LIST changes: -COUMADIN5 M2 PO; -Lidoderm 5% Patch T; -PERCOCET 5-3251 EACH PO
[2018-09-05 11:45] VITALS: BP 111/63
--- NOTE | 2018-09-05 11:56 | NUR ---
PATIENT CHANGED INTO A GOWN AT THIS TIME.
[2018-09-05 12:14] LABS: BASO % 0.7 % (0.0-1.0); EOS # 0.1 10*3/uL (0.0-0.4); EOS % 0.8 % (1.0-4.0); HEMOGLOBIN 13.3 g/dl (12.0-16.0); LYMPH # 1.3 10*3/uL (1.3-4.4); LYMPH % 22.2 % (27.0-41.0); MEAN CELL VOLUME 89.9 fl (81.0-99.0); MEAN CORPUSCULAR HGB 29.2 pg (27.0-31.0); MEAN CORPUSCULAR HGB CONC 32.4 g/dl (33.0-37.0); MEAN PLATELET VOLUME 8.9 fl (9.6-12.3); MONO # 0.4 10*3/uL (0.1-1.0); MONO % 7.3 % (3.0-9.0); NEUT # 4.1 10*3/uL (2.3-7.9); NEUT % 68.8 % (47.0-73.0); PLATELET COUNT AUTOMATED 217 10*3/uL (130-400); RED BLOOD COUNT 4.56 10*6/uL (4.10-5.10); RED CELL DISTRI WIDTH 13.2 % (0-14.5); WHITE BLOOD COUNT 5.9 10*3/uL (4.8-10.8)
[2018-09-05 12:23] LABS: ACT PARTIAL THROMBO TIME 33.3 SECONDS (20.8-31.5); INTERNATIONAL NORM RATIO 1.9 (2.0-3.5)
[2018-09-05 12:30] LABS: ALBUMIN 3.4 gm/dl (3.1-4.5); ALKALINE PHOSPHATASE 155 U/L (45-117); BUN 9 mg/dl (7-24); CHLORIDE 108 mmol/L (98-107); CREATININE 0.62 mg/dL (0.55-1.02); POTASSIUM 3.9 mmol/L (3.5-5.1); SGOT/AST 24 IU/L (3-35); SGPT/ALT 26 U/L (12-78); SODIUM 140 mmol/L (136-145)
--- NOTE | 2018-09-05 13:06 | NUR ---
PATIENT TAKEN TO THE 4TH FLOOR BY THIS NURSE BEDSIDE GIVEN TO LEONA APPIAH.
[2018-09-05] MEDS ORDERED: COUMADIN5 M2 PO (13:10)
[2018-09-05] MEDS ORDERED: PERCOCET 5-3251 EACH PO (13:11)
[2018-09-05 13:15] VITALS: BP 139/66
--- NOTE | 2018-09-05 13:15 | NUR ---
UPDATED PATIENT MEDICATION LIST WITH PATIENT FROM HER RECALL
--- NOTE | 2018-09-05 13:16 | NUR ---
UPDATED PATIENT ALLERGY LIST. PT STATES SHE IS NOT ALLERGIC TO PCN, ALLERGY REMOVED
[2018-09-05 16:00] VITALS: BP 113/80
--- NOTE | 2018-09-05 19:49 | NUR ---
MEDICATED WITH PRN AMBIEN FOR C/O SLEEPLESSNESS. WILL MONITOR EFFECTIVENESS
[2018-09-05 20:00] VITALS: BP 120/68
--- NOTE | 2018-09-05 21:11 | NUR ---
DR QUINTANA AWARE OF PATIENT CONCERNED ABOUT NOT HAVING PAIN MEDICATION AVAILABLE IN THE MIDDLE OF THE NIGHT. ORDER TAKEN FOR 0.5 MG IV DILAUDID ONCE.
--- NOTE | 2018-09-05 21:50 | NUR ---
24 HR chart check completed.
--- NOTE | 2018-09-05 23:45 | NUR ---
PATIENT STATES SHE TAKES HER BLOOD PRESSURE MEDICATIONS AT NIGHT TIME. PHARMACY MADE AWARE
[2018-09-06] VITALS: BP 146/54; BP 152/80
--- NOTE | 2018-09-06 07:45 | NUR ---
PT STATES THAT SHE IS HAVING PAIN TO HER SACRUM AND STATES THAT THE SCHEDULED PERCOCET IS NOT GIVING HER RELIEF THROUGHOUT THE NIGHT. WILL NOTIFY DR QUINTANA.
[2018-09-06 08:00] VITALS: BP 133/65
--- NOTE | 2018-09-06 08:15 | NUR ---
DR QUINTANA IN TO SEE PT. NEW ORDERS RECEIVED FOR EXTRA PAIN MEDICATION DAILY. SEE EMAR. PT OFFERED MEDICATION AT THIS TIME BUT STATES THAT SHE WILL WAIT UNTIL 0900 FOR HER PERCOCET.WILL CONTINUE TO MONITOR.
--- NOTE | 2018-09-06 08:53 | NUR ---
[facility] CALLED FOR CONSULT TO DR DALE. INFORMATION GIVEN TO REWINDER OPERATOR AND STATES THAT THE INFORMATION WILL BE FORWARDED TO PHYSICIAN.
--- NOTE | 2018-09-06 09:00 | NUR ---
Software Licensing Specialist in to talk to patient. Patient states lives at home alone with her family checking in on her. There are 6 steps in the home. Physician: Dr. Yeimi Browne Pharmacy: [facility] services: none Patient's level of ADLs: INDEPENDENT Patient has working utilities: yes DME: none Follow-up physician's appointment after d/c: she prefers to make her own follow up appt after discharge Does patient want to access PORTAL?: no Discharge plan discussed with patient. She lives at home alone with her family checking in on her. She is normally independent in her ADLs and ambulation. She has been using a walker while here at the hospital. Discussed short term rehab and she is agreeable. When given a list of facilities [facility] chose [facility] and it is [address] from her house and [facility]. facility planner notified and following. ANNY TRACY
--- NOTE | 2018-09-06 10:42 | NUR ---
TIME CHANGED ON PT COUMADIN PER PT REQUEST AND NURSING MEASURE. PT STATES THAT SHE TAKES HER COUMADIN 5 MG PO IN THE AM PER HER ORDERS (SEPIDEH). PT ASKED TWICE FOR MEDICATION AT THIS TIME INSTEAD AT 1800. WILL GIVE MEDICATION WHEN PROFILED BY PHARMACY.
--- NOTE | 2018-09-06 11:35 | NUR ---
PT ASKING TO MOVE TO SECOND BED IN HER ROOM ONCE HER ROOMATE IS DISCHARGED. PT STATES THAT SHE FEELS CLAUSTROPHOBIC IN BED 1. PT ADVISED THAT NURSE WILL LOOK INTO ONCE PT IN BED 2 IS DISCHARGED.
[2018-09-06 12:00] VITALS: BP 130/65
--- NOTE | 2018-09-06 13:40 | NUR ---
PHYSICAL THERAPY PAtient evaluated on 4, full evaluation to follow. Continue with PT as per plan of care with fall, fractured sacrum and acute debility precautons. MAy require SNF. Patient is moderate comlpexity via chart review, tests and evaluation: 26321. Thank you for this referral. Amena Nunez,PT
--- NOTE | 2018-09-06 13:52 | NUR ---
Occupational Therapy evaluation completed on 4 with full eval to follow. Precautions include fall risk, new ww use, IV UE, bed alarm. Patient is moderate complexity via chart review, testing and evaluation. Recommend OT per POC and SNF to enable return home to indep living alone. Thank you. Stephanie Hua OTR/L
--- NOTE | 2018-09-06 15:27 | NUR ---
Patient requesting a referral to [facility]. Contacted facility and faxed referral. Waiting on review/acceptance,
[2018-09-06 16:00] VITALS: BP 143/70
[2018-09-06 20:00] VITALS: BP 123/59
--- NOTE | 2018-09-06 21:30 | NUR ---
MEDICATED WITH JOSEN DANIKAIEN FOR C/O SLEEPLESSNESS
--- NOTE | 2018-09-06 22:55 | NUR ---
24 HR chart check completed.
[2018-09-07] VITALS: BP 127/72
--- NOTE | 2018-09-07 06:09 | NUR ---
PATIENT RESTING IN BED WITH NO S/S OF DISTRESS. NO NEEDS MADE. BED IN LOWEST POSITION, CALL LIGHT IN REACH
[2018-09-07 07:25] LABS: INTERNATIONAL NORM RATIO 1.7 (2.0-3.5)
[2018-09-07 08:00] VITALS: BP 114/65
--- NOTE | 2018-09-07 09:00 | NUR ---
Fishing Vessel Operator in to see patient. No new needs or request at this time. When medically stable and accepted she will be discharged to [facility]. materials planner following.
--- NOTE | 2018-09-07 10:59 | NUR ---
PHYSICAL THERAPY Patient presented to therapy in sittign position with report of 8/10 low back and sacrum pain. Patient says she is suppossed to go for an MRI this morning. Patient agrees to therapy session. Patient was identified by name and . Patient performed STS transfer with MIN A X 1. Patient ambulated with W/W and CGA X 1 for 60' x 1 with verbal cues for upright posture and proper gait technique. Patient transferred back to bedside chair with MIN A X 1. Patient was left in sitting position with call light within reach with LEs lowered. Patient was 1:1 with this E COMMERCE MARKETING ANALYST for 15 minutes total. Patient is recommended for SNF upon discharge. RICKI QUIÑONES E COMMERCE MARKETING ANALYST
--- NOTE | 2018-09-07 11:30 | NUR ---
hospital exemption completed
[2018-09-07 12:00] VITALS: BP 135/70
--- NOTE | 2018-09-07 12:49 | NUR ---
PHYSICAL THERAPY Patient is waitign for her lunch right now. Will check back later. RICKI QUIÑONES DOOR FRAME BUILDER
--- NOTE | 2018-09-07 13:44 | NUR ---
OT NOTE Pt was seen this P.M. 1:1 for 24 minute OT session. Upon arrival pt was sitting upright in recliner, pt identified by name and . Pt had reports of 8/10 low back pain. Pt donned her shoes while sitting in the chair with SBA with reports of min increased back pain. Sit to stand completed from chair level with SBA. Functional mobility completed into the bathroom with CGA and use of w/w for UE support. There she transferred on/off standard commode with CGA and use of grab bar. While going into the bathroom pt required education on walker safety due to leaving outside of bathroom versus taking it with her. CLothing management and toilet hygiene completed with SBA. Pt then stood sink side while washing her hands and face with SBA, pt had one LOB that occured while her vision was cut that required Ramon to correct. Functional mobility completed back to her recliner where she was left sitting upright with call light in hand and tray table in place. Continue with rec D/C plan to SNF. CLARISSE Sarabia/Khanh
--- NOTE | 2018-09-07 13:55 | NUR ---
PHYSICAL THERAPY Patient presented to therapy in sitting position in bedside chair with report of 8/10 pain in the sacral area. Patient transferred STS with CGA. Patient ambulated to wheelchair outside of room with W/W for 22' x 1. Patient transferred to W/ with CGA. [facility] Patient STS from W/ with MIN A X 1. Patient ascended and descended x 10 steps with use of handrailing on L and straight cane on R with CGA X 1 at all times. Patient transferred back to bedside chair with CGA. Patient was left in bedside chair with call light within reach. Patient was 1:1 with this FOLDER TIER for 15 minutes total. RICKI QUIÑONES FOLDER TIER
[2018-09-07 16:00] VITALS: BP 145/75
[2018-09-07 20:00] VITALS: BP 119/71
[2018-09-08] VITALS: BP 113/60
[2018-09-08 07:34] LABS: INTERNATIONAL NORM RATIO 1.6 (2.0-3.5)
--- NOTE | 2018-09-08 07:54 | NUR ---
patient accepted to [facility], 3 night stay complete, patient is ok to go if medically stable for discharge.
[2018-09-08 08:00] VITALS: BP 118/69
--- NOTE | 2018-09-08 08:21 | NUR ---
DR QUINTANA AT BEDSIDE
--- NOTE | 2018-09-08 08:25 | NUR ---
DR QUINTANA AWARE OF PATIENT REQUESTING TO TALK TO HER AGAIN
--- NOTE | 2018-09-08 08:30 | NUR ---
Health Underwriter in to see patient. Discussed [facility] being full and [facility] having an opening as Dr. Browne stated she didn't want to go to [facility]. She doesn't want to go to [facility] and states she will be staying another night here in the hospital. Informed patient CM would discuss with principal planner.
--- NOTE | 2018-09-08 08:44 | NUR ---
Patient stating she does not want to go to [facility] now. Asking for orchards. Contacted facility liason, [facility] with a waiting list, but there is a female opening at [facility]. Faxed referral, notified DELIA Barber. Will follow.
--- NOTE | 2018-09-08 08:51 | NUR ---
MEDICATED WITH PRN DILAUDID FOR C/O PAIN. WILL MONITOR
--- NOTE | 2018-09-08 09:23 | NUR ---
PHYSICAL THERAPY Patient has a pain level in sacral area of 10/10. Patient unable to participate in therapy due to pain level. RICKI QUIÑONES COLLEGE OR UNIVERSITY DEPARTMENT HEAD
--- NOTE | 2018-09-08 11:00 | NUR ---
MEDICATED SOMEWHAT EFFECTIVE FOR PAIN. PT WILL TAKE NEXT PO DOSE AROUND 1300.
--- NOTE | 2018-09-08 11:10 | NUR ---
Patient requesting [facility] pending the discharge of another patient there tomorrowm 09/09/18. Faxed referral; Patient accepted to [facility] but only pending a scheduled discharge. If patient does not discharge tomorrow, there will not be any beds available and patient must go to [facility] where she has already been accepted.
[2018-09-08 12:00] VITALS: BP 137/73
--- NOTE | 2018-09-08 13:02 | NUR ---
24 HR chart check completed.
--- NOTE | 2018-09-08 13:17 | NUR ---
PHYSICAL THERAPY Patient is gettign ultrsound at this time. Will check back later. RICKI QUIÑONES SOCIAL WORKER AIDE
--- NOTE | 2018-09-08 14:28 | NUR ---
PHYSICAL THERAPY Patient was in extreme pain in sacral area and was unable to participate in therapy for this reason. Patient is scheduled for discharge tommorrow. RICKI QUIÑONES POULTRY BUYER
--- NOTE | 2018-09-08 14:29 | NUR ---
OT NOTE Pt was seen this P.M. 1:1 for 15 minute OT session. Upon arrival pt was sitting upright in bed side chair, pt identified by name and . Pt had reports of 10/10 low back pain. Pt completed sit to stand from chair level with SBA followed by functional mobility into the bathroom with CGA and use of w/w for UE support. There she transferred on/off standard commode with supervision and use of grab bar toielting tasks completed with supervision. Pt then stood sink side while washing her hands with SBA. Throughout entire task pt required verbal instructions for increased walker safety due to staying far away from it and trying to walk off without it. Pt then returned to bed side chair where she was left with call light in hand, tray table in place, and phone in reach. Continue with rec D/C plan to SNF. CLARISSE Sarabia/Khanh
[2018-09-08 16:00] VITALS: BP 141/62
[2018-09-08 20:00] VITALS: BP 97/54
[2018-09-09] VITALS: BP 93/60
--- NOTE | 2018-09-09 07:56 | NUR ---
Patient accepted to [facility] after they have a scheduled discharge and the room is cleaned.
[2018-09-09 08:00] VITALS: BP 133/65
[2018-09-09] MEDS ORDERED: PERCOCET 5-3251 EACH PO (08:28)
[2018-09-09] MEDS ORDERED: AMBIEN5 MG PO (08:28)
--- NOTE | 2018-09-09 08:31 | NUR ---
PHYSICAL THERAPY Patient presented to therapy this AM in sitting position with report of improving sacral pain and feeling better overall. Patient agrees to therapy session. Patient was identified by name and . Patient performed STS transfer with MIN A X 1. Patient ambulated 140' x 1 with CGA X 1 to MIN A X 1 with W/W with verbal cues for upright posture. Patient was left in sitting position with call light within reach, and tray table near patient. Patient was 1;1 with this SCRAP CRANE OPERATOR for 15 minutes total. Patient is recommmeded to SNF upon discharge. RICKI QUIÑONES SCRAP CRANE OPERATOR
[2018-09-09] MEDS ORDERED: NEURONTIN300 MG PO (08:32)
[2018-09-09] MEDS ORDERED: Lidoderm 5% Patch T (08:32)
--- NOTE | 2018-09-09 09:00 | NUR ---
Electronic Engineering Technician in to see patient. Discussed her discharge to [facility] once the discharged bed is available and clean. She verbalized an understanding.
--- NOTE | 2018-09-09 13:30 | NUR ---
[facility] room at [facility] is ready, notified cargo vessel stewardess and patient. patient will call a friend for transport
--- NOTE | 2018-09-09 14:15 | NUR ---
Discharge instructions reviewed with patient/family. Patient receptive and verbalizes understanding. Follow-up care arranged. Written instructions given to patient/family. HEPLOCK DISCONTINUED. PATIENT TAKEN OFF FLOOR BY WHEELCHAIR AND TRANSPORTED BY CAR BY FRIEND. [facility]. ROSANNA TURK
--- NOTE | 2018-09-10 08:26 | NUR ---
OCCUPATIONAL THERAPY CO-SIGN I approve of the Occupational Therapy notes written above. KIA VASQUEZ OTR/Khanh
== END 2018-09-09 14:15 | disposition other institution (70) | DRG 552 ==
LOC: ED 11:44 → 4E 12:06 → EDHOLD 12:06 → 4E 12:29
PROVIDERS: Emergency Medicine; ADMIT Internal Medicine
DX: S32.10XA Unspecified fracture of sacrum, initial encounter for closed fracture (principal); S32.592A Other specified fracture of left pubis, initial encounter for closed fracture; R62.7 Adult failure to thrive; W18.39XA Other fall on same level, initial encounter; M48.062 Spinal stenosis, lumbar region with neurogenic claudication; I48.2 Chronic atrial fibrillation; I10 Essential (primary) hypertension; R09.02 Hypoxemia; Z88.8 Allergy status to other drugs, medicaments and biological substances; Z79.899 Other long term (current) drug therapy; Z82.49 Family history of ischemic heart disease and other diseases of the circulatory system; Y93.89 Activity, other specified; Y92.89 Other specified places as the place of occurrence of the external cause; Y99.8 Other external cause status

== ENCOUNTER → 2018-09-21 | Outpatient (CLI) | payer MEDICARE ==
[~2018-09-21] MED LIST changes: +COUMADIN5 M2 PO; +Lidoderm 5% Patch T; +PERCOCET 5-3251 EACH PO
== END | disposition home or self-care (01) ==
LOC: ORTHO 01:00
DX: S32.10XD Unspecified fracture of sacrum, subsequent encounter for fracture with routine healing (principal); W19.XXXD Unspecified fall, subsequent encounter; X58.XXXD Exposure to other specified factors, subsequent encounter

== ENCOUNTER → 2018-10-14 | Outpatient (CLI) | payer MEDICARE | END | disposition home or self-care (01) | LOC: ORTHO 02:08 | DX: S32.10XD Unspecified fracture of sacrum, subsequent encounter for fracture with routine healing (principal); X58.XXXD Exposure to other specified factors, subsequent encounter ==

== ENCOUNTER → 2018-10-19 | Outpatient (CLI) | payer MEDICARE | END | disposition home or self-care (01) | LOC: CT 13:50 | DX: S32.10XD Unspecified fracture of sacrum, subsequent encounter for fracture with routine healing (principal); S32.592D Other specified fracture of left pubis, subsequent encounter for fracture with routine healing; M47.818 Spondylosis without myelopathy or radiculopathy, sacral and sacrococcygeal region; M48.07 Spinal stenosis, lumbosacral region; M16.0 Bilateral primary osteoarthritis of hip; K57.30 Diverticulosis of large intestine without perforation or abscess without bleeding; I70.90 Unspecified atherosclerosis; X58.XXXD Exposure to other specified factors, subsequent encounter ==

== ENCOUNTER → 2019-03-02 | Outpatient (CLI) | payer MEDICARE ==
[~2019-03-02] MED LIST changes: +LUMIGAN50 DRP OPH
== END | disposition home or self-care (01) ==
LOC: MRI 09:00
DX: M43.16 Spondylolisthesis, lumbar region (principal); M48.07 Spinal stenosis, lumbosacral region; M48.061 Spinal stenosis, lumbar region without neurogenic claudication

== ENCOUNTER → 2019-05-06 | Outpatient (CLI) | payer MEDICARE ==
--- NOTE | ~2019-05-06 | EKG ---
[place], [place] ELECTROCARDIOGRAM REPORT NAME: BARRY TOMLIN UNIT #: [id number] ROOM: DOCTOR: LIZZY DRAFT REPORT BIRTHDATE: [birth year] [facility] Test Date: 2019-05-06 Test Time: 12:49:21 Pat Name: BARRY TOMLIN Department: Room: Gender: F Deliverer Food: Dana Bates : 1940 Requested By: VENUS SAMANO Order Number: [id number] Reading MD: Kayla Saldana MD Measurements Intervals [place] Rate: 61 P: 51 [place]: 160 QRS: 6 QRSD: 84 T: 60 QT: 402 QTc: 405 Interpretive Statements Sinus rhythm Low voltage, precordial leads Baseline wander in lead(s) V4 No previous ECG available for comparison Electronically Signed On 05-08-2019 7:45:10 PDT by Kayla Saldana MD CM:EKGRPT:ELECTROCARDIOGRAM REPORT [id number] VENUS NARANJO DRAFT REPORT VENUS SAMANO DO
[2019-05-06 13:05] LABS: BASO # 0.1 10*3/uL (0.0-0.1); BASO % 0.9 % (0.0-1.0); EOS # 0.1 10*3/uL (0.0-0.4); EOS % 1.9 % (1.0-4.0); HEMATOCRIT 43.3 % (37.0-47.0); HEMOGLOBIN 14.2 g/dl (12.0-16.0); LYMPH # 1.8 10*3/uL (1.3-4.4); LYMPH % 30.3 % (27.0-41.0); MEAN CELL VOLUME 89.1 fl (81.0-99.0); MEAN CORPUSCULAR HGB 29.2 pg (27.0-31.0); MEAN CORPUSCULAR HGB CONC 32.8 g/dl (33.0-37.0); MEAN PLATELET VOLUME 9.8 fl (9.6-12.3); MONO # 0.5 10*3/uL (0.1-1.0); MONO % 8.5 % (3.0-9.0); NEUT # 3.4 10*3/uL (2.3-7.9); NEUT % 58.1 % (47.0-73.0); PLATELET COUNT AUTOMATED 190 10*3/uL (130-400); RED BLOOD COUNT 4.86 10*6/uL (4.10-5.10); RED CELL DISTRI WIDTH 13.6 % (0-14.5); WHITE BLOOD COUNT 5.8 10*3/uL (4.8-10.8)
[2019-05-06 13:29] LABS: ALBUMIN 3.5 gm/dl (3.1-4.5); ALKALINE PHOSPHATASE 78 U/L (45-117); BUN 11 mg/dl (7-24); CHLORIDE 108 mmol/L (98-107); CREATININE 0.52 mg/dL (0.55-1.02); POTASSIUM 3.5 mmol/L (3.5-5.1); SGOT/AST 18 IU/L (3-35); SGPT/ALT 22 U/L (12-78); SODIUM 143 mmol/L (136-145); TOTAL PROTEIN 6.9 gm/dL (6.4-8.2)
[2019-05-06 13:33] LABS: ACT PARTIAL THROMBO TIME 31.9 SECONDS (20.0-32.1); INTERNATIONAL NORM RATIO 1.7 (2.0-3.5)
[2019-05-06 14:18] LABS: BILIRUBIN NEGATIVE (NEGATIVE); BLOOD TRACE-INTACT (NEGATIVE); CLARITY SL CLOUDY (CLEAR); COLOR YELLOW (YELLOW); GLUCOSE NEGATIVE (NEGATIVE); KETONE NEGATIVE (NEGATIVE); LEUKO ESTERASE 2+ (NEGATIVE); NITRITE POSITIVE (NEGATIVE); UROBILINOGEN 0.2 E.U./dl (0.2-1.0)
[2019-05-06 14:33] LABS: EPITHELIAL CELLS 41-50
[2019-05-06 14:35] LABS: BACTERIA 1+; RBC 0-2 rbc/hpf (0-2); WBC TNTC wbc/hpf (0-5)
== END | disposition home or self-care (01) ==
LOC: LAB 12:01
PROVIDERS: Orthopaedic Surgery
DX: I10 Essential (primary) hypertension (principal); M19.90 Unspecified osteoarthritis, unspecified site; M79.609 Pain in unspecified limb; Z79.899 Other long term (current) drug therapy

== ENCOUNTER → 2019-05-11 | Outpatient (CLI) | payer MEDICARE ==
--- NOTE | ~2019-05-11 | ST ---
[place], [place] EXERCISE STRESS TEST REPORT NAME: [facility]LIN [id number] UNIT #: [id number] ROOM: DOCTOR: HEIDY QUINTANA MD BIRTHDATE: [birth year] DOS: STRESS TEST REASON FOR TESTING: Evaluation of normal EKG for preop. TECHNIQUE: After explaining procedure and obtaining consent, the patient was subjected to Lexiscan infusion. Resting heart rate showed sinus, nonspecific ST-T wave changes. The patient did not have any complaints during the infusion. After the Lexiscan infusion was over, she was injected with Cardiolite and stress images were taken. ASSESSMENT AND PLAN: Lexiscan stress test without any ST-T wave changes or arrhythmias. Cardiolite images pending. HEIDY QUINTANA MD CM:STRESS:EXERCISE STRESS TEST REPORT [id number] HEIDY QUINTANA MD
--- NOTE | 2019-05-11 08:35 | NUR ---
INFORMED SIGNED CONSENT OBTAINED FOR LEXSCAN STRESS TEST WITH DR QUINTANA. RESTING EKG NSR HR 70 BP 142/80. PULSE OX 98% LUNGS CLEAR. PT COMPLETED ONE MINUTE OF LEXISCAN 0.4MG IV OVER 10 SECONDS. NO ARRHYTHMIAS OR ST CHANGES NOTED. PT HAD SOB WITH INJECTION. LAST RECOVERY HR OF 87 BP 128/78. PT IN STABLE CONDITION, AWAITING NUCLEAR IMAGES.
== END | disposition home or self-care (01) ==
LOC: CARD 01:58
DX: R53.81 Other malaise (principal); R94.31 Abnormal electrocardiogram [ECG] [EKG]

== ENCOUNTER → 2019-05-18 | Outpatient (CLI) | payer MEDICARE ==
[2019-05-18 08:20] VITALS: BP 153/72
== END | disposition home or self-care (01) ==
LOC: INJECTION 07:42
DX: M81.0 Age-related osteoporosis without current pathological fracture (principal); I10 Essential (primary) hypertension; K21.9 Gastro-esophageal reflux disease without esophagitis; M48.00 Spinal stenosis, site unspecified; E78.00 Pure hypercholesterolemia, unspecified; I48.91 Unspecified atrial fibrillation; Z87.891 Personal history of nicotine dependence

== ENCOUNTER → 2020-03-19 | Outpatient (CLI) | payer MEDICARE ==
[2020-03-19 10:38] VITALS: BP 134/71; BP 149/73
== END | disposition home or self-care (01) ==
LOC: INJECTION 10:18
DX: M81.0 Age-related osteoporosis without current pathological fracture (principal)

== ENCOUNTER → 2020-04-06 | Outpatient (CLI) | payer MEDICARE | END | disposition home or self-care (01) | LOC: COVID19 00:49 | DX: R06.02 Shortness of breath (principal); Z20.828 Contact with and (suspected) exposure to other viral communicable diseases ==

== ENCOUNTER → 2020-08-03 | Outpatient (CLI) | payer MEDICARE | END | disposition home or self-care (01) | LOC: RESCLI 00:44 | PROVIDERS: ATTEND Family Medicine | DX: I48.0 Paroxysmal atrial fibrillation (principal); E78.00 Pure hypercholesterolemia, unspecified; I10 Essential (primary) hypertension; E55.9 Vitamin D deficiency, unspecified; M81.0 Age-related osteoporosis without current pathological fracture; K59.00 Constipation, unspecified; Z79.899 Other long term (current) drug therapy; Z95.828 Presence of other vascular implants and grafts; Z88.8 Allergy status to other drugs, medicaments and biological substances ==

== ENCOUNTER → 2020-09-20 | Outpatient (CLI) | payer MEDICARE ==
[~2020-09-20] MED LIST changes: +XARE20MG PO
[2020-09-20 08:51] VITALS: BP 146/75
== END | disposition home or self-care (01) ==
LOC: INJECTION 08:32
PROVIDERS: ATTEND Internal Medicine
DX: M81.0 Age-related osteoporosis without current pathological fracture (principal); I10 Essential (primary) hypertension; K21.9 Gastro-esophageal reflux disease without esophagitis; M48.00 Spinal stenosis, site unspecified; E78.00 Pure hypercholesterolemia, unspecified; I48.91 Unspecified atrial fibrillation; Z87.891 Personal history of nicotine dependence

== ENCOUNTER → 2020-09-27 | Outpatient (CLI) | payer MEDICARE | END | disposition home or self-care (01) | LOC: RAD 13:09 → US 13:30 → RAD 13:30 | PROVIDERS: ATTEND Internal Medicine | DX: M81.8 Other osteoporosis without current pathological fracture (principal); R09.89 Other specified symptoms and signs involving the circulatory and respiratory systems ==

== ENCOUNTER 2021-01-03 10:02 | Emergency (ER) | payer MEDICARE ==
[~2021-01-03] VITALS: Ht 157.4 cm; Wt 66.2 kg
[2021-01-03 10:06] VITALS: BP 153/85
[2021-01-03] MEDS ORDERED: TYLENOL325 M1 PO (11:39)
== END 2021-01-03 12:29 | disposition home or self-care (01) ==
LOC: ED 10:02
DX: S89.91XA Unspecified injury of right lower leg, initial encounter (principal); I10 Essential (primary) hypertension; Z88.8 Allergy status to other drugs, medicaments and biological substances; Z79.899 Other long term (current) drug therapy; Z98.890 Other specified postprocedural states; X58.XXXA Exposure to other specified factors, initial encounter; Y93.89 Activity, other specified; Y92.89 Other specified places as the place of occurrence of the external cause; Y99.8 Other external cause status

== ENCOUNTER → 2021-01-23 | Outpatient (CLI) | payer MEDICARE ==
[~2021-01-23] MED LIST changes: +TYLENOL325 M1 PO
== END | disposition home or self-care (01) ==
LOC: RESCLI 01:50
PROVIDERS: ATTEND Internal Medicine Nephrology
DX: I48.0 Paroxysmal atrial fibrillation (principal); K59.00 Constipation, unspecified; I10 Essential (primary) hypertension; E55.9 Vitamin D deficiency, unspecified; M48.00 Spinal stenosis, site unspecified; M81.0 Age-related osteoporosis without current pathological fracture; Z95.828 Presence of other vascular implants and grafts; Z79.899 Other long term (current) drug therapy

== ENCOUNTER → 2021-02-19 | Outpatient (CLI) | payer MEDICARE | END | disposition home or self-care (01) | LOC: US 12:55 | PROVIDERS: ATTEND Internal Medicine | DX: I65.23 Occlusion and stenosis of bilateral carotid arteries (principal) ==

== ENCOUNTER → 2021-03-21 | Outpatient (CLI) | payer MEDICARE | END | disposition home or self-care (01) | LOC: INJECTION 10:19 | PROVIDERS: ATTEND Internal Medicine | DX: M81.0 Age-related osteoporosis without current pathological fracture (principal); I10 Essential (primary) hypertension; K21.9 Gastro-esophageal reflux disease without esophagitis; G62.9 Polyneuropathy, unspecified; E78.00 Pure hypercholesterolemia, unspecified; I48.91 Unspecified atrial fibrillation; Z87.891 Personal history of nicotine dependence ==

== ENCOUNTER → 2021-07-05 | Outpatient (CLI) | payer MEDICARE | END | disposition home or self-care (01) | LOC: RESCLI 02:53 | PROVIDERS: ATTEND Internal Medicine | DX: I10 Essential (primary) hypertension (principal); I48.0 Paroxysmal atrial fibrillation; M81.0 Age-related osteoporosis without current pathological fracture; G89.29 Other chronic pain; E55.9 Vitamin D deficiency, unspecified; K59.00 Constipation, unspecified; Z79.899 Other long term (current) drug therapy; Z98.890 Other specified postprocedural states; Z88.8 Allergy status to other drugs, medicaments and biological substances ==

== ENCOUNTER → 2021-10-07 | Outpatient (CLI) | payer MEDICARE ==
[2021-10-07 09:25] VITALS: BP 135/76
== END | disposition home or self-care (01) ==
LOC: INJECTION 09:10
PROVIDERS: ATTEND Internal Medicine
DX: M81.0 Age-related osteoporosis without current pathological fracture (principal); I10 Essential (primary) hypertension; K21.9 Gastro-esophageal reflux disease without esophagitis; I48.91 Unspecified atrial fibrillation; M48.00 Spinal stenosis, site unspecified; E78.00 Pure hypercholesterolemia, unspecified; Z87.891 Personal history of nicotine dependence

== ENCOUNTER → 2021-11-25 | Outpatient (CLI) | payer MEDICARE ==
[~2021-11-25] MED LIST changes: +LATANOPROST2.5 ML OD
== END | disposition home or self-care (01) ==
LOC: CARD 00:29
PROVIDERS: ATTEND Internal Medicine
DX: I11.9 Hypertensive heart disease without heart failure (principal); I25.10 Atherosclerotic heart disease of native coronary artery without angina pectoris; I48.21 Permanent atrial fibrillation

== ENCOUNTER → 2022-01-03 | Outpatient (CLI) | payer MEDICARE | END | disposition home or self-care (01) | LOC: RESCLI 01:05 | PROVIDERS: ATTEND Internal Medicine | DX: I11.9 Hypertensive heart disease without heart failure (principal); I48.0 Paroxysmal atrial fibrillation; I25.10 Atherosclerotic heart disease of native coronary artery without angina pectoris; G89.29 Other chronic pain; E83.42 Hypomagnesemia; E55.9 Vitamin D deficiency, unspecified; K59.00 Constipation, unspecified; N39.41 Urge incontinence; Z79.899 Other long term (current) drug therapy; J30.9 Allergic rhinitis, unspecified; Z88.8 Allergy status to other drugs, medicaments and biological substances ==

== ENCOUNTER → 2022-04-08 | Outpatient (CLI) | payer MEDICARE | END | disposition home or self-care (01) | LOC: US 09:01 | PROVIDERS: ATTEND Nurse Practitioner Family | DX: N20.0 Calculus of kidney (principal); N28.1 Cyst of kidney, acquired; K76.89 Other specified diseases of liver ==

== ENCOUNTER 2022-04-14 20:22 | Emergency (ER) | payer MEDICARE ==
[~2022-04-14] VITALS: Ht 157.4 cm; Wt 63.5 kg
[2022-04-14] MEDS ORDERED: METOPROLOL SUCC25 M2 PO (20:42)
[2022-04-14 21:07] VITALS: BP 145/83
== END 2022-04-14 21:33 | disposition home or self-care (01) ==
LOC: ED 20:22
DX: I10 Essential (primary) hypertension (principal); Z88.8 Allergy status to other drugs, medicaments and biological substances; Z79.899 Other long term (current) drug therapy

== ENCOUNTER → 2022-04-15 | Outpatient (CLI) | payer MEDICARE ==
[2022-04-15 08:44] VITALS: BP 146/77
== END | disposition home or self-care (01) ==
LOC: INJECTION 01:42
PROVIDERS: ATTEND Nurse Practitioner Family
DX: M81.0 Age-related osteoporosis without current pathological fracture (principal); I10 Essential (primary) hypertension; K21.9 Gastro-esophageal reflux disease without esophagitis; E78.00 Pure hypercholesterolemia, unspecified; I48.91 Unspecified atrial fibrillation; M48.00 Spinal stenosis, site unspecified

== ENCOUNTER → 2022-10-03 | Outpatient (CLI) | payer MEDICARE | END | disposition home or self-care (01) | LOC: RAD 10:07 | PROVIDERS: ATTEND Nurse Practitioner Primary Care | DX: M81.0 Age-related osteoporosis without current pathological fracture (principal); M15.0 Primary generalized (osteo)arthritis ==

== ENCOUNTER → 2022-10-17 | Outpatient (CLI) | payer MEDICARE | END | disposition home or self-care (01) | LOC: RAD 13:01 | PROVIDERS: ATTEND Nurse Practitioner Primary Care | DX: R05.1 Acute cough (principal) ==

== ENCOUNTER → 2022-10-30 | Outpatient (CLI) | payer MEDICARE | END | disposition home or self-care (01) | LOC: INJECTION 00:41 | PROVIDERS: ATTEND Nurse Practitioner Primary Care | DX: M81.0 Age-related osteoporosis without current pathological fracture (principal); I10 Essential (primary) hypertension; K21.9 Gastro-esophageal reflux disease without esophagitis; I48.91 Unspecified atrial fibrillation; M48.00 Spinal stenosis, site unspecified; E78.00 Pure hypercholesterolemia, unspecified ==

== ENCOUNTER → 2022-11-10 | Outpatient (CLI) | payer MEDICARE | END | disposition home or self-care (01) | LOC: CT 00:17 | PROVIDERS: ATTEND Nurse Practitioner Primary Care | DX: I77.810 Thoracic aortic ectasia (principal); K76.89 Other specified diseases of liver ==

== ENCOUNTER → 2023-05-05 | Outpatient (CLI) | payer MEDICARE ==
[2023-05-05 10:48] VITALS: BP 151/74
== END | disposition home or self-care (01) ==
LOC: INJECTION 02:46
PROVIDERS: ATTEND Nurse Practitioner Primary Care
DX: M81.0 Age-related osteoporosis without current pathological fracture (principal); I10 Essential (primary) hypertension; I48.91 Unspecified atrial fibrillation; K21.9 Gastro-esophageal reflux disease without esophagitis; G62.9 Polyneuropathy, unspecified; E78.00 Pure hypercholesterolemia, unspecified; Z87.891 Personal history of nicotine dependence

== ENCOUNTER 2023-05-19 13:35 | Emergency (ER) | payer MEDICARE ==
[~2023-05-19] VITALS: Ht 157.4 cm; Wt 64.0 kg
[2023-05-19 13:48] VITALS: BP 149/77
[2023-05-19] MEDS ORDERED: TRAMADOL HCL50 MG PO (16:06)
== END 2023-05-19 16:11 | disposition home or self-care (01) ==
LOC: ED 13:35
DX: S22.32XA Fracture of one rib, left side, initial encounter for closed fracture (principal); I10 Essential (primary) hypertension; K21.9 Gastro-esophageal reflux disease without esophagitis; E78.00 Pure hypercholesterolemia, unspecified; I48.91 Unspecified atrial fibrillation; Z88.8 Allergy status to other drugs, medicaments and biological substances; Z95.5 Presence of coronary angioplasty implant and graft; Z98.890 Other specified postprocedural states; W01.0XXA Fall on same level from slipping, tripping and stumbling without subsequent striking against object, initial encounter; Y93.01 Activity, walking, marching and hiking; Y92.000 Kitchen of unspecified non-institutional (private) residence as the place of occurrence of the external cause; Y99.8 Other external cause status

== ENCOUNTER → 2023-07-15 | Outpatient (CLI) | payer MEDICARE ==
[~2023-07-15] MED LIST changes: +TRAMADOL HCL50 MG PO
== END | disposition home or self-care (01) ==
LOC: RESCLI 01:14
PROVIDERS: ATTEND Internal Medicine
DX: I48.0 Paroxysmal atrial fibrillation (principal); I10 Essential (primary) hypertension; M81.0 Age-related osteoporosis without current pathological fracture; K59.00 Constipation, unspecified; I25.10 Atherosclerotic heart disease of native coronary artery without angina pectoris; E55.9 Vitamin D deficiency, unspecified; J44.9 Chronic obstructive pulmonary disease, unspecified; M54.41 Lumbago with sciatica, right side; Z98.890 Other specified postprocedural states; F10.90 Alcohol use, unspecified, uncomplicated; Z79.899 Other long term (current) drug therapy

== ENCOUNTER 2023-08-16 10:19 | Emergency (ER) | payer MEDICARE ==
[~2023-08-16] VITALS: Ht 167.6 cm; Wt 78.1 kg
[2023-08-16 10:30] VITALS: BP 129/75
[2023-08-16 10:47] LABS: BASO % 0.7 % (0.0-1.0); EOS % 0.4 % (1.0-4.0); HEMATOCRIT 40.5 % (37.0-47.0); LYMPH # 0.4 10*3/uL (1.3-4.4); LYMPH % 9.1 % (27.0-41.0); MEAN CELL VOLUME 89.8 fl (81.0-99.0); MEAN CORPUSCULAR HGB 29.3 pg (27.0-31.0); MEAN CORPUSCULAR HGB CONC 32.6 g/dl (33.0-37.0); MEAN PLATELET VOLUME 8.8 fl (9.6-12.3); MONO # 0.6 10*3/uL (0.1-1.0); MONO % 12.5 % (3.0-9.0); NEUT # 3.5 10*3/uL (2.3-7.9); NEUT % 77.1 % (47.0-73.0); PLATELET COUNT AUTOMATED 121 10*3/uL (130-400); RED BLOOD COUNT 4.51 10*6/uL (4.10-5.10); RED CELL DISTRI WIDTH 13.2 % (0-14.5); WHITE BLOOD COUNT 4.5 10*3/uL (4.8-10.8)
[2023-08-16 11:08] LABS: ALKALINE PHOSPHATASE 54 U/L (46-116); BUN 6 mg/dl (9-23); CHLORIDE 102 mmol/L (98-107); POTASSIUM 3.8 mmol/L (3.4-5.1); SGPT/ALT 15 U/L (5-49); TOTAL PROTEIN 6.7 gm/dL (6.0-8.0)
[2023-08-16 11:25] LABS: BILIRUBIN Negative (Negative); BLOOD Negative (Negative); CLARITY Clear (Clear); COLOR Yellow (Yellow); GLUCOSE Negative (Negative); KETONE 1+ (Negative); LEUKO ESTERASE Negative (Negative); NITRITE Negative (Negative); PH 7.5 (4.5-8.0); SPECIFIC GRAVITY <= 1.005 (1.001-1.030); UROBILINOGEN 0.2 E.U./dl (0.0-1.0)
[2023-08-16 11:32] LABS: BACTERIA TRACE; EPITHELIAL CELLS 0-2
[2023-08-16] MEDS ORDERED: TAMIFLU 75MG CA75 MG PO ×3 (12:04→12:27)
== END 2023-08-16 12:03 | disposition home or self-care (01) ==
LOC: ED 10:19
PROVIDERS: Emergency Medicine
DX: J10.1 Influenza due to other identified influenza virus with other respiratory manifestations (principal); R53.1 Weakness; I10 Essential (primary) hypertension; E78.5 Hyperlipidemia, unspecified; K21.9 Gastro-esophageal reflux disease without esophagitis; E78.00 Pure hypercholesterolemia, unspecified; I48.91 Unspecified atrial fibrillation; Z88.8 Allergy status to other drugs, medicaments and biological substances; Z95.5 Presence of coronary angioplasty implant and graft; Z98.890 Other specified postprocedural states; Z20.822 Contact with and (suspected) exposure to COVID-19

== ENCOUNTER → 2023-11-05 | Outpatient (CLI) | payer MEDICARE ==
[~2023-11-05] MED LIST changes: +DENOSUMAB 60 MG/ML SYRINGE SC ONE; +TAMIFLU 75MG CA75 MG PO
[2023-11-05 10:16] VITALS: BP 159/75
== END | disposition home or self-care (01) ==
LOC: INJECTION 10:04
PROVIDERS: ATTEND Nurse Practitioner Primary Care
DX: M81.0 Age-related osteoporosis without current pathological fracture (principal); I10 Essential (primary) hypertension; I48.91 Unspecified atrial fibrillation; K21.9 Gastro-esophageal reflux disease without esophagitis; G62.9 Polyneuropathy, unspecified

== ENCOUNTER → 2024-01-18 | Outpatient (CLI) | payer MEDICARE ==
[~2024-01-18] MED LIST changes: -DENOSUMAB 60 MG/ML SYRINGE SC ONE
== END | disposition home or self-care (01) ==
LOC: ORTHO 02:01
PROVIDERS: ATTEND Orthopaedic Surgery
DX: M17.12 Unilateral primary osteoarthritis, left knee (principal); M25.562 Pain in left knee; M25.462 Effusion, left knee

== ENCOUNTER → 2024-04-22 | Outpatient (CLI) | payer MEDICARE | END | disposition home or self-care (01) | LOC: RAD 02:52 | PROVIDERS: ATTEND Nurse Practitioner Primary Care | DX: M47.26 Other spondylosis with radiculopathy, lumbar region (principal); M25.551 Pain in right hip; M54.41 Lumbago with sciatica, right side; M48.061 Spinal stenosis, lumbar region without neurogenic claudication ==

== ENCOUNTER → 2024-05-09 | Outpatient (CLI) | payer MEDICARE ==
[~2024-05-09] MED LIST changes: +DENOSUMAB 60 MG/ML SYRINGE SC ONE
[2024-05-09 10:07] VITALS: BP 140/83
== END ==
LOC: INJECTION 02:32
PROVIDERS: ATTEND Nurse Practitioner Primary Care
DX: M81.0 Age-related osteoporosis without current pathological fracture (principal); I48.91 Unspecified atrial fibrillation

== ENCOUNTER 2024-08-02 14:11 | Emergency (ER) | payer MEDICARE ==
[~2024-08-02] VITALS: Ht 154.9 cm; Wt 66.7 kg
[~2024-08-02 14:11] MED LIST changes: -DENOSUMAB 60 MG/ML SYRINGE SC ONE
[2024-08-02 14:45] VITALS: BP 165/89
[2024-08-02 16:55] LABS: BILIRUBIN Negative (Negative); BLOOD Negative (Negative); CLARITY Clear (Clear); COLOR Yellow (Yellow); GLUCOSE Negative (Negative); KETONE 2+ (Negative); LEUKO ESTERASE Negative (Negative); NITRITE Negative (Negative); UROBILINOGEN 0.2 E.U./dl (0.0-1.0)
[2024-08-02 17:29] LABS: WBC 0-2 wbc/hpf (0-5)
[2024-08-02 17:30] LABS: RBC 0-2 rbc/hpf (0-2)
== END 2024-08-02 18:01 | disposition home or self-care (01) ==
LOC: ED 14:11
PROVIDERS: Emergency Medicine
DX: S00.03XA Contusion of scalp, initial encounter (principal); I48.91 Unspecified atrial fibrillation; I10 Essential (primary) hypertension; Z88.8 Allergy status to other drugs, medicaments and biological substances; Z79.899 Other long term (current) drug therapy; W22.8XXA Striking against or struck by other objects, initial encounter; Y93.89 Activity, other specified; Y92.89 Other specified places as the place of occurrence of the external cause; Y99.8 Other external cause status

== ENCOUNTER → 2024-08-17 | Outpatient (CLI) | payer MEDICARE | END | disposition home or self-care (01) | LOC: RAD 02:12 → LAB 02:12 | PROVIDERS: ATTEND Nurse Practitioner Primary Care | DX: M50.322 Other cervical disc degeneration at C5-C6 level (principal); M48.02 Spinal stenosis, cervical region; M54.9 Dorsalgia, unspecified; G89.29 Other chronic pain ==

== ENCOUNTER → 2024-09-19 | Outpatient (CLI) | payer MEDICARE | END | disposition home or self-care (01) | LOC: MRI 02:09 | PROVIDERS: ATTEND Anesthesiology Pain Medicine | DX: M47.22 Other spondylosis with radiculopathy, cervical region (principal); M43.12 Spondylolisthesis, cervical region; M48.02 Spinal stenosis, cervical region ==

== ENCOUNTER → 2024-09-20 | Outpatient (CLI) | payer MEDICARE | END | disposition home or self-care (01) | LOC: RAD 13:06 | PROVIDERS: ATTEND Nurse Practitioner Primary Care | DX: M19.012 Primary osteoarthritis, left shoulder (principal) ==

== ENCOUNTER → 2024-11-07 | Outpatient (CLI) | payer MEDICARE | END | disposition home or self-care (01) | LOC: RAD 09:22 | PROVIDERS: ATTEND Nurse Practitioner Primary Care | DX: Z13.820 Encounter for screening for osteoporosis (principal); M81.0 Age-related osteoporosis without current pathological fracture ==

== ENCOUNTER → 2024-11-11 | Outpatient (CLI) | payer MEDICARE ==
[~2024-11-11] MED LIST changes: +DENOSUMAB 60 MG/ML SYRINGE SC ONE
[2024-11-11 10:00] VITALS: BP 135/69
== END | disposition home or self-care (01) ==
LOC: INJECTION 01:16
PROVIDERS: ATTEND Nurse Practitioner Primary Care
DX: M81.0 Age-related osteoporosis without current pathological fracture (principal); I10 Essential (primary) hypertension; K21.9 Gastro-esophageal reflux disease without esophagitis; E78.00 Pure hypercholesterolemia, unspecified; I48.91 Unspecified atrial fibrillation; Z87.891 Personal history of nicotine dependence

== ENCOUNTER → 2025-01-27 | Outpatient (CLI) | payer MEDICARE ==
[~2025-01-27] MED LIST changes: -DENOSUMAB 60 MG/ML SYRINGE SC ONE
== END | disposition home or self-care (01) ==
LOC: MRI 01:13
PROVIDERS: ATTEND Nurse Practitioner Primary Care
DX: I67.82 Cerebral ischemia (principal); R41.3 Other amnesia; R68.89 Other general symptoms and signs

== ENCOUNTER → 2025-05-17 | Outpatient (CLI) | payer MEDICARE ==
[~2025-05-17] MED LIST changes: +DENOSUMAB 60 MG/ML SYRINGE SC ONE; +LATANOPROST2.5 ML OP; +SINGULAIR10 M1 PO
[2025-05-17 09:45] VITALS: BP 150/90
== END | disposition home or self-care (01) ==
LOC: INJECTION 00:25
PROVIDERS: ATTEND Nurse Practitioner Primary Care
DX: M81.0 Age-related osteoporosis without current pathological fracture (principal)

== ENCOUNTER → 2025-07-11 | Outpatient (CLI) | payer MEDICARE ==
[~2025-07-11] MED LIST changes: -DENOSUMAB 60 MG/ML SYRINGE SC ONE
== END | disposition home or self-care (01) ==
LOC: CARD 00:42
PROVIDERS: ATTEND Internal Medicine Cardiovascular Disease
DX: I08.0 Rheumatic disorders of both mitral and aortic valves (principal); R06.09 Other forms of dyspnea

== ENCOUNTER 2025-08-30 10:25 | Emergency (ER) | payer MEDICARE ==
[~2025-08-30] VITALS: Wt 61.2 kg
[2025-08-30 10:33] VITALS: BP 169/99
[2025-08-30] MEDS ORDERED: ASPIRIN, CHEWABLE 81 MG TAB PO ONE (10:35)
[2025-08-30 11:08] LABS: BASO # 0.0 10*3/uL (0.0-0.1); BASO % 0.6 % (0.0-1.0); EOS # 0.0 10*3/uL (0.0-0.4); EOS % 0.6 % (1.0-4.0); MEAN CELL VOLUME 90.1 fl (81.0-99.0); MEAN CORPUSCULAR HGB 28.1 pg (27.0-31.0); MEAN PLATELET VOLUME 8.5 fl (9.6-12.3); MONO # 0.5 10*3/uL (0.1-1.0); MONO % 7.3 % (3.0-9.0); NEUT # 5.3 10*3/uL (2.3-7.9); NEUT % 76.1 % (47.0-73.0); NUCLEATED RED BLOOD CELL 0.0 % (0.0-0.0); NUCLEATED RED BLOOD CELL 0.0 10*3/uL (0.0-0.0); PLATELET COUNT AUTOMATED 179 10*3/uL (130-400); RED CELL DISTRI WIDTH 13.7 % (0-14.5)
[2025-08-30 11:21] LABS: ACT PARTIAL THROMBO TIME 30.2 SECONDS (20.0-32.1)
[2025-08-30 11:28] LABS: BUN 12 mg/dl (9-23)
== END 2025-08-30 12:07 | disposition home or self-care (01) ==
LOC: ED 10:25
PROVIDERS: Internal Medicine
DX: R07.89 Other chest pain (principal); I10 Essential (primary) hypertension; E78.5 Hyperlipidemia, unspecified; I48.91 Unspecified atrial fibrillation; Z88.1 Allergy status to other antibiotic agents; Z88.8 Allergy status to other drugs, medicaments and biological substances